=== PATIENT | male | born 1995 | race Caucasian/White ===

== ENCOUNTER → 2020-08-29 07:45 | Outpatient (CLI) | payer OTHER, SELFPAY ==
[2020-08-29] MEDS: COVID-19 VACC #1, MRNA(MOD) 100 MCG/0.5 ML VIAL IM (07:53)
== END ==
PROVIDERS: Visit Provider Internal Medicine
DX: Z23 Encounter for immunization (principal)
CPT/HCPCS: 0011A; 91301

== ENCOUNTER → 2020-10-01 07:42 | Outpatient (CLI) | payer OTHER, SELFPAY ==
[2020-10-01] MEDS: COVID-19 VACC #2, MRNA(MOD) 100 MCG/0.5 ML VIAL IM (07:50)
== END ==
PROVIDERS: Visit Provider Internal Medicine
DX: Z23 Encounter for immunization (principal)
CPT/HCPCS: 0012A; 91301